=== PATIENT | female | born 1935 | race Caucasian/White ===

== ENCOUNTER 2017-07-28 14:34 | Observation (INO) | payer OTHER ==
[~2017-07-28] VITALS: Ht 165.1 cm; Wt 62.3 kg
[2017-07-28 14:45] VITALS: Ht 165.1 cm; Wt 62.3 kg
[2017-07-28 15:35] LABS: CALCIUM 8.7 mg/dL (8.5-10.1); CHLORIDE SERUM 101 mmol/L (98-107); GLUCOSE SERUM 170 mg/dL (74-106); POTASSIUM SERUM 3.8 mmol/L (3.5-5.1); SODIUM SERUM 137 mmol/L (136-145)
[2017-07-28 15:36] LABS: BASOPHIL % 0.2 % (0-2); PLATELET COUNT 360 x10^3mcL (130-400)
[2017-07-28 15:37] LABS: RED CELL DISTRIBUTION WIDTH 18.3 % (11.5-14.5)
[2017-07-28 15:39] LABS: ALKALINE PHOSPHATASE 112 U/L (46-116); ALT/SGPT 15 U/L (14-59); AST/SGOT 15 U/L (15-37); BILIRUBIN TOTAL 0.2 mg/dL (0.20-1.00); TOTAL PROTEIN, SERUM 7.4 g/dL (6.4-8.2)
[2017-07-28 15:50] LABS: ALBUMIN 2.9 g/dL (3.4-5.0)
[2017-07-28 15:51] LABS: UA SPECIFIC GRAVITY 1.015 (1.005-1.035); microscopic required? YES; urine erythrocyte NEGATIVE (NEGATIVE)
[2017-07-28 17:50] LABS: CHOLESTEROL/HDL RATIO 3.9; MAGNESIUM 1.9 mg/dL (1.8-2.4); PHOSPHOROUS 3.6 mg/dL (2.5-4.9)
[2017-07-28 18:25] VITALS: BP 93/67
[2017-07-28 21:45] VITALS: BP 187/79
[2017-07-28 21:53] LABS: IRON 25 ug/dL (50-170); TOTAL IRON BINDING CAPACITY 302 ug/dL (250-450)
[2017-07-28 22:04] LABS: RED BLOOD CELLS 4.3 M/mm3 (4.10-5.10)
[2017-07-29 06:18] VITALS: BP 185/73
[2017-07-29 06:26] VITALS: BP 145/60
[2017-07-29 06:34] LABS: BASOPHIL % 0.4 % (0-2); PLATELET COUNT 373 x10^3mcL (130-400)
[2017-07-29 06:35] LABS: rbc morphology (normal/abnorm) ABNORMAL (NORMAL)
[2017-07-29 09:15] VITALS: BP 126/51
[2017-07-29 09:57] LABS: CALCIUM 8.9 mg/dL (8.5-10.1); CARBON DIOXIDE 27.2 mmol/L (21-32); CHLORIDE SERUM 104 mmol/L (98-107); CREATININE SERUM 0.8 mg/dL (0.6-1.0); GLUCOSE SERUM 84 mg/dL (74-106); MAGNESIUM 2.1 mg/dL (1.8-2.4); PHOSPHOROUS 3.4 mg/dL (2.5-4.9); POTASSIUM SERUM 4.2 mmol/L (3.5-5.1); SODIUM SERUM 140 mmol/L (136-145)
[2017-07-29] MEDS ORDERED: PREDNISONE2.5 MG PO (12:49)
[2017-07-29] MEDS ORDERED: TEGRETOL200 MG PO (12:50)
[2017-07-29] MEDS ORDERED: NOR5 PO (12:50)
[2017-07-29] MEDS ORDERED: ULTRAM50 MG PO (12:51)
[2017-07-29] MEDS ORDERED: SIMVASTATIN20 M1 PO (12:51)
[2017-07-29] MEDS ORDERED: MAC100 PO (13:00)
[2017-07-29] MEDS ORDERED: LIPI10 PO (13:00)
[2017-07-29] MEDS ORDERED: GOOD SENSE ASPI81 M3 PO (13:00)
[2017-07-29] MEDS ORDERED: LAC PO (13:00)
[2017-07-29 14:00] VITALS: BP 152/68
[2017-07-29 14:04] VITALS: BP 126/51
[2017-07-29] MEDS ORDERED: SIMVASTATIN40 M1 PO (14:36)
== END 2017-07-29 15:27 | disposition home or self-care (01) | DRG 690 ==
LOC: ED 14:34 → EDBD 17:04 → DU 17:04
PROVIDERS: Emergency Medicine; Family Medicine
DX: N39.0 Urinary tract infection, site not specified (principal); E44.0 Moderate protein-calorie malnutrition; R55 Syncope and collapse; E86.0 Dehydration; R73.03 Prediabetes; I73.9 Peripheral vascular disease, unspecified; I16.0 Hypertensive urgency; I10 Essential (primary) hypertension; G30.9 Alzheimer's disease, unspecified; F02.80 Dementia in other diseases classified elsewhere, unspecified severity, without behavioral disturbance, psychotic disturbance, mood disturbance, and anxiety; M06.9 Rheumatoid arthritis, unspecified; D50.9 Iron deficiency anemia, unspecified; E78.5 Hyperlipidemia, unspecified; Z68.22 Body mass index [BMI] 22.0-22.9, adult
CPT/HCPCS: 82962; 83880; G0378; J0360; J0696; J7030; Q0092

== ENCOUNTER 2020-07-23 16:30 | Emergency (ER) | payer OTHER ==
[~2020-07-23] VITALS: Ht 167.6 cm; Wt 49.9 kg
[~2020-07-23 16:30] MED LIST: GOOD SENSE ASPI81 M3 PO; LAC PO; LIPI10 PO; MAC100 PO; NOR5 PO; PREDNISONE2.5 MG PO; SIMVASTATIN20 M1 PO; SIMVASTATIN40 M1 PO; TEGRETOL200 MG PO; ULTRAM50 MG PO
[2020-07-23 16:33] VITALS: Ht 167.6 cm; Wt 49.9 kg
[2020-07-23 20:02] VITALS: BP 127/71
== END 2020-07-23 20:02 | disposition home or self-care (01) ==
LOC: ED 16:30
DX: S82.102A Unspecified fracture of upper end of left tibia, initial encounter for closed fracture (principal); L97.521 Non-pressure chronic ulcer of other part of left foot limited to breakdown of skin; W18.39XA Other fall on same level, initial encounter; Y93.89 Activity, other specified; Y92.89 Other specified places as the place of occurrence of the external cause; Y99.8 Other external cause status
CPT/HCPCS: J2270